=== PATIENT | male | born 1945 | race Caucasian/White ===

== ENCOUNTER → 2019-08-05 | Outpatient (CLI) | payer MEDICARE ==
[~2019-08-05] MED LIST: ASPI325T8 PO; CINN500C2 PO; CRESTOR40 MG PO; DOXA4TAB3 PO; FISH12002 PO; GLIM2TAB3 PO; LEVO175T5 PO; LISI-334 PO; METF10007 PO; METO50TA6 PO; MULT1TAB52 PO; PANT40TA5 PO
[2019-08-05 11:57] VITALS: BP 151/70
== END | disposition home or self-care (01) ==
LOC: SURG 11:45
PROVIDERS: ATTEND Anesthesiology
DX: M16.11 Unilateral primary osteoarthritis, right hip (principal); M25.569 Pain in unspecified knee; G56.00 Carpal tunnel syndrome, unspecified upper limb; G89.29 Other chronic pain; E11.9 Type 2 diabetes mellitus without complications
CPT/HCPCS: 99214